=== PATIENT | female | born 1995 | race Caucasian/White ===

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

== ENCOUNTER 2017-04-05 13:58 | Inpatient (IN) | payer MEDICAID ==
[2017-04-05] MEDS ORDERED: ONDANSETRON HCL/PF 2 MG/ML VIAL IV PRN (14:13)
[2017-04-05] MEDS ORDERED: BUTORPHANOL TARTRATE 2 MG/ML VIAL IV PRN (14:13)
[2017-04-05] MEDS ORDERED: OXYTOCIN/DEXTROSE 5%-WATER 30 UNITS/500 ML BAG IV ONE ×2 (14:13)
[2017-04-05] MEDS ORDERED: INSULIN REGULAR HUMAN REC 100 UNITS in NORMAL SALINE 100 ML IV PRN (14:13)
[2017-04-05] MEDS ORDERED: LIDOCAINE HCL 50 ML VIAL PERI PRN (14:13)
[2017-04-05] MEDS ORDERED: PERMETHRIN 60 APPL TUBE TP SCH (14:15)
[2017-04-05] MEDS: MISOPROSTOL 100 MCG TABLET VG PRN (16:50)
[2017-04-05] MEDS: RINGER'S SOLUTION,LACTATED 1,000 ML IV ONE ×2 (18:04→20:59)
[2017-04-05 20:57] LABS: Urine Bilirubin Negative (NEGATIVE); Urine Blood 25 /ul (NEGATIVE); Urine Ketone Negative (NEGATIVE); Urine Nitrite Negative (NEGATIVE); Urine Protein Negative (NEGATIVE); Urine Urobilinogen Normal (NORMAL); Urine pH 6.5 pH (5.0-7.0)
[2017-04-05] MEDS ORDERED: RINGER'S SOLUTION,LACTATED 1,000 ML IV ONE (20:58)
[2017-04-05 21:07] LABS: Urine Appearance Turbid; Urine Bacteria TRACE; Urine Color Yellow; Urine RBC 0-5 /hpf (0-5)
[2017-04-06] MEDS: MISOPROSTOL 100 MCG TABLET VG PRN ×2 (01:19→10:30)
[2017-04-06] MEDS: RINGER'S SOLUTION,LACTATED 1,000 ML IV PRN ×5 (07:23→16:15)
[2017-04-06] MEDS ORDERED: ceFAZolin SODIUM/DEXTROSE,ISO 2 GM/50 ML BAG IV ONE (12:38)
[2017-04-06] MEDS ORDERED: OXYTOCIN 20 UNITS in RINGER'S SOLUTION,LACTATED 1,000 ML IV ONE (12:38)
--- NOTE | 2017-04-06 12:55 | PN ---
Progess Note - Interim Narrative: 04/06/17 8:45 Subjective-patient is resting comfortably, feels contractions occasionally, requesting section Objective- SVE- 08/30/-4, cephalic Bedside ultrasound-cephalic FHTs- 120s, moderate variability, positive accelerations, no decelerations [place]-every 1-2 minutes with irritability bigger contractions every 3 minutes Assessment and plan- Labor-induction due to gestational diabetes, status post Cytotec 2, Cytotec has been delayed due to tachysystole, patient is requesting to have section. Patient appears very tired and is crying and does not tolerate vaginal exams very well. I discussed options with the patient at time as she has not yet in labor. I discussed option to ambulate/nap/shower and reassess in 1 hour for Cytotec placement OR since she has an extended contraction stress test that is reassuring she could go home and come back in another couple of days. Pt continues to request for a CD and does not want to go home. Plan to have breakfast, rest and reassess for cytotec placement again after 1 hour. GBS status- neg Rash/Possible scabies-treatment for scabies started. Anesthesia discussed with pt and she is not a candidate for spinal/epidural/intrathecal anesthesia due to this rash. Pt undersands this and should she need a CD, she would be placed under general anesthesia. GDM-BS WNL, cont. to monitor
--- NOTE | 2017-04-06 12:57 | PN ---
Progess Note - Interim Narrative: 04/06/17 930 Nurse called to say that pt's contractions have spaced out and the plan was to place cytotec. Pt is crying due to pain and refused to have cytotec placed, and continues to request CD.
[2017-04-06] MEDS ORDERED: DEXTROSE 5% IV ONE ×2 (13:12)
[2017-04-06] MEDS ORDERED: GENTAMICIN SULFATE IV ONE ×2 (13:12)
[2017-04-06] MEDS ORDERED: WATER IV ONE ×2 (13:12)
--- NOTE | 2017-04-06 13:12 | PN ---
Progess Note - Interim Narrative: 04/06/17 12:57 Pt is resting comfortably, requesting CD, frustrated VSS SVE: 08/30/4, cephalic, pt crying during check FHTs: 120's, mod geovanni, no decels, + accels [place]: irregular, 1-3 min A/P: Pt is refusing to continue with induction of labor. At this time, we discussed that it is my recommendation to continue trial of labor as she is not in labor yet. I expressed my concerns that the pt does not tolerate exams and will likely not tolerate labor given her inability to have epidural due to the rash. Pt continues to desire CD. At this time, I do not believe that she's had an adequate time for cervical ripening. She would not tolerate a tripp bulb insertion, nor is she a good candidate for pitocin at this time. We discussed CD on maternal request and the risks and benefits reviewed with the pt. These risks were considered given her issues with anesthesia, narrow pubic arch, and failure to progress. We discussed her future reproductive plans (2 children), ability for TOLAC. We also discussed that a planned delivery is associated with a lower risk of injury than planned vaginal delivery, but longer hospital stay/recovery and increased risks of respiratory problems, abnormal placentation in future pregnancies, and uterine rupture in future pregnancies if a trial of labor is attempted. Planned delivery minimizes the risk of surgical complications associated with unplanned delivery, which may become necessary during attempted vaginal delivery. For women planning several pregnancies, we suggest avoiding delivery on maternal request. Placenta previa and accreta are significantly more common in pregnancies following one or more deliveries. Moreover, these complications may necessitate hysterectomy. If the patient undergoes a trial of labor in the future, she will be at increased risk of uterine rupture We understand her reasons for requesting a delivery, addressed her concerns about labor and vaginal and any misinformation she's had. Pt understands all these risks and wishes to proceed with CD. All questions and concerns were addressed. Pt consented and prepped for CD. 04/06/17 13:11
[2017-04-06] MEDS ORDERED: CLINDAMYCIN PHOSPHATE 900 MG in DEXTROSE 5 % IN WATER 100 ML IV ONE ×2 (14:00)
[2017-04-06] MEDS ORDERED: BISACODYL 10 MG SUPP.RECT RC PRN (15:26)
[2017-04-06] MEDS ORDERED: SENNOSIDES 8.6 MG TABLET PO PRN (15:26)
[2017-04-06] MEDS ORDERED: KETOROLAC TROMETHAMINE 30 MG/ML VIAL IV PRN (15:26)
[2017-04-06] MEDS ORDERED: SIMETHICONE 80 MG TAB.CHEW PO PRN (15:26)
[2017-04-06] MEDS ORDERED: ONDANSETRON HCL/PF 2 MG/ML VIAL IV PRN (15:26)
[2017-04-06] MEDS ORDERED: oxyCODONE HCL/ACETAMINOPHEN 1 TAB TABLET PO PRN (15:26)
--- NOTE | 2017-04-06 15:33 | OR ---
Operative Report - Dictated Report Narrative: Operative report: 04/06/2017 Preoperative diagnosis: 39.3 weeks, failed trial of induction, scabies, inability to receive local analgesia, maternal request for section Postoperative diagnosis: Same, hemorrhage Procedure: low-transverse section status: Routine Surgeon: Vera Redd D.O. Gas Pumper: Or staff Anesthesia: Gen. IV fluids: 900 Milliliters Urine output: 100 Milliliters EBL: 1000 Milliliters Findings: Normal-appearing uterus, tubes, and ovaries, male in cephalic presentation, 3258 g, delivered at 1435, Apgars of 6 at 1 minute, and 8 at 5 minutes and 9 at 10 minutes Drains: Elise catheter to gravity Pathology: None Complications: hemorrhage Condition: Stable The patient was taken to the operating room with IV fluids running and Elise catheter in place. She was placed in the dorsal supine position with a leftward tilt. She was prepped and draped in the normal sterile fashion. Gen. anesthesia was then induced. The patient was intubated. A Pfannenstiel skin incision was made with the scalpel approximately 2 cm above the pubic symphysis. The subcutaneous tissue was dissected down to the fascia. The fascia was incised in the midline and extended laterally. The superior aspect of the fascia was grasped with Darin clamps and the rectus muscles were dissected off the fascia using Coats scissors and blunt dissection. In a similar fashion, the inferior aspect of the fascia was grasped and the rectus muscles dissected off. The peritoneum was then entered and extended with good visualization of the bowel and bladder. The uterine incision was made in a low-transverse fashion using the scalpel. It was extended laterally in a blunt manner. The infant was found to be cephalic. The head did not deliver easily and the uterine incision was then extended with the bandage scissors. Again the infant was attempted to be delivered and did so with gentle fundal pressure. The infant was then delivered atraumatically. The cord was clamped and cut. The infant was handed off to the waiting counseling services manager. Cord blood and cord gases were then collected. The placenta was then delivered spontaneously. The uterus was cleared of all clots and debris. Brisk bleeding was noted and the uterus was noted to be boggy. The uterus again was cleared of all clots and debris and fundal massage was performed. Methergine was then given. Uterine incision was reapproximated using 0 Vicryl in a running locked fashion. The uterus continued to be slightly boggy but no obvious bleeding was noted. A second layer of 0 Vicryl was used to imbricate the uterine incision. Hemostasis was obtained. The peritoneum was then reapproximated using 3-0 Monocryl. The rectus muscles were inspected, cautery was used to obtain hemostasis. The fascia was then reapproximated with 0 Vicryl. The subcutaneous tissue was then irrigated. Bovie cautery was used to obtain hemostasis. The subcutaneous tissue was then reapproximated using 3-0 Monocryl. The skin was closed in a subcuticular fashion using 4-0 Monocryl. The incision was found to be hemostatic. Benzoin and Steri-Strips were then applied. Telfa and ABDs bandage was then placed. The patient tolerated the procedure well. Sponge, lap, needle, and instrument counts were correct throughout the entire procedure. The patient was taken to the recovery room in stable condition. History for MU Definition: * The number of deliveries resulting in a live the patient experienced prior to current hospitalization * The previous delivery of live twins or any live multiple gestation is considered one live event. *If primagravida or nulliparous is documented select zero for the number of previous live births. Live Events: 0
[2017-04-06] MEDS ORDERED: RINGER'S SOLUTION,LACTATED 1,000 ML IV ONE (15:50)
[2017-04-06] MEDS ORDERED: HYDROmorphone HCL 4 MG/ML DISP.SYRIN IV ONE ×2 (15:50→16:00)
[2017-04-06] MEDS ORDERED: NALOXONE HCL 0.4 MG/ML VIAL IV PRN (15:53)
[2017-04-06] MEDS ORDERED: PROMETHAZINE HCL 12.5 MG in DEXTROSE 5 % IN WATER 50 ML IV PRN ×2 (15:53)
[2017-04-06] MEDS ORDERED: diphenhydrAMINE HCL 50 MG/ML VIAL IV PRN (15:53)
[2017-04-06] MEDS ORDERED: HYDROmorphone HCL 1 MG/ML DISP.SYRIN IV ONE (15:53)
[2017-04-06] MEDS ORDERED: HYDROmorphone HCL 2 MG/ML VIAL IV PRN (15:53)
--- NOTE | 2017-04-06 16:05 | OR ---
Anesthesia Procedure Note - Anesthesia Procedure Note Date of Service: 04/06/17 Narrative: Vital Signs - Last Taken Temp 36.5 C 04/06/17 16:01 Pulse 99 04/06/17 16:01 Resp 18 04/06/17 16:01 BP 140/81 04/06/17 16:01 Pulse Ox 100 04/06/17 16:01 O2 Oxygen Delivery Method Room Air 04/06/17 16:04 ANESTHESIA PROCEDURE NOTE Date of Procedure: 04/06/2017. Time of procedure: 1540. Performed by: Jaime More CRNA Lens Inserter: None. Preprocedure diagnosis: Status post primary . Post procedure diagnosis: Same. Procedure: Bilateral ultrasound-guided transversus abdominis plane block for postop analgesia. Indications: The patient is a 22 -year-old female post section, which I was consulted for a bilateral ultrasound-guided tap blocks for postop analgesia. Findings: See below. Details of the procedure: ChloraPrep was used on the patient's abdomen and the procedure was performed under sterile technique. The right abdominal fascial layer between the internal oblique muscle and the transversus abdominis muscles was identified under ultrasound guidance. A 22-gauge 4 inch block needle was inserted under ultrasound guidance to the target fascial plane. 15 mL's of 0.5 % bupivacaine plus epinephrine 1 200,000 was injected after negative aspiration for blood. The needle was removed intact and the procedure was then repeated at the left side. No complications were noted. The images were retained in the Hospital medical database . EBL: Minimal. Fluids: N/A. Specimen: N/A. Post procedure condition: The patient tolerated the procedure well. No complications were noted. Thank you for this consultation. Jaime More CRNA
[2017-04-06] MEDS: IBUPROFEN 800 MG TABLET PO PRN (22:19)
[2017-04-06] MEDS: DOCUSATE SODIUM 100 MG CAPSULE PO SCH (22:25)
[2017-04-07] MEDS: oxyCODONE HCL/ACETAMINOPHEN 1 TAB TABLET PO PRN ×2 (01:27→19:00)
[2017-04-07] MEDS: DOCUSATE SODIUM 100 MG CAPSULE PO SCH ×2 (08:35→21:59)
--- NOTE | 2017-04-07 09:14 | PN ---
Mel Note - Interim Narrative: 04/07/17 09:12 Subjective: Patient is doing well, ambulating, voiding, tolerating by mouth. Minimal lochia. Pain controlled with medication. Objective: Vital signs stable General: no acute distress Abdomen: Soft, nondistended, diffusely tender, fundus firm Skin: Incision is clean, dry and intact Extremities: Minimal edema, nontender Rash: Improved Assessment and plan: Postoperative day 1 Feeding: bottle Pain: Controlled with by mouth medication Gestational diabetes: Continue to monitor blood sugars today Scabies: Much improved continue permethrin cream Routine postoperative care.
[2017-04-07] MEDS: IBUPROFEN 800 MG TABLET PO PRN ×2 (10:40→18:59)
[2017-04-07] MEDS: PERMETHRIN 60 APPL TUBE TP SCH (19:03)
[2017-04-08] MEDS: DOCUSATE SODIUM 100 MG CAPSULE PO SCH ×2 (10:23→20:10)
[2017-04-08] MEDS: IBUPROFEN 800 MG TABLET PO PRN ×2 (12:34→18:55)
--- NOTE | 2017-04-08 16:51 | PN ---
Subjective - Date and Time Seen Date: 04/08/17 Subjective Narrative: Post op day 2, s/p primary c/s. no complaints. pain controlled. passed gas. tolerated regular diet well. normal lochia. Objective - Vitals Vitals: Last Vital Signs Temp 37.0 C 04/08/17 15:37 Pulse 110 H 04/08/17 15:37 Resp 18 04/08/17 15:37 BP 121/58 04/08/17 15:37 Pulse Ox 98 04/08/17 15:37 - Exam Constitutional: Present: Alert, Oriented x3, Cooperative Respiratory: Present: no respiratory distress Cardiovascular/Chest: Present: normal peripheral pulses Abdomen: Present: soft, nondistended, other - Incision dry and clean with steri strips. fundus firm and non-tender Extremity: Present: normal range of motion, no pedal edema, no calf tenderness Skin Exam: Present: normal color, warm/dry, no cyanosis Eye contact: Present: cooperative, good eye contact, normal speech Cauti Physician Documentation - Urinary Catheter Management Urethral (Elise) Date of Insertion: 04/06/17 Time of Insertion: 13:00 Date of Removal: 04/07/17 Time of Removal: 01:10 Assessment/Plan Plan Narrative: A: POD#2, s/p primary c/s for failed trial of induction/inability to receive epidural. Plan: routine post op care. ambulation encouraged. pain meds prn. Torsten Morris MD
[2017-04-09] MEDS: IBUPROFEN 800 MG TABLET PO PRN (04:57)
[2017-04-09 12:14] VITALS: BP 107/62
[2017-04-09] MEDS: PERMETHRIN 60 APPL TUBE TP SCH (12:14)
[2017-04-09] MEDS: DOCUSATE SODIUM 100 MG CAPSULE PO SCH (12:15)
--- NOTE | 2017-04-09 15:05 | PN ---
Subjective - Date and Time Seen Date: 04/09/17 Subjective Narrative: Post op day 3, s/p primary c/s doing well. no complaints. pain controlled. . normal lochia. Objective - Vitals Vitals: Last Vital Signs Temp 36.8 C 04/09/17 10:00 Pulse 100 04/09/17 10:00 Resp 18 04/09/17 10:00 BP 107/62 04/09/17 10:00 Pulse Ox 99 04/09/17 10:00 - Exam Constitutional: Present: Alert, Oriented x3, Cooperative Respiratory: Present: no respiratory distress Cardiovascular/Chest: Present: normal peripheral pulses Abdomen: Present: soft, nontender, nondistended, other - fundus firm and below umbilicus. incision dry and clean with steri strips intact Extremity: Present: normal range of motion, no pedal edema, no calf tenderness Skin Exam: Present: normal color, warm/dry, no cyanosis Appearance: Present: appropriate appearance Eye contact: Present: cooperative, good eye contact, normal speech Cauti Physician Documentation - Urinary Catheter Management Urethral (Elise) Date of Insertion: 04/06/17 Time of Insertion: 13:00 Date of Removal: 04/07/17 Time of Removal: 01:10 Assessment/Plan Plan Narrative: A: POD#3, s/p primary c/s, stable and well. Plan: will discharge home today. Torsten Morris MD
== END 2017-04-09 17:08 | disposition home or self-care (01) | DRG 765 ==
LOC: OB 13:58
PROVIDERS: ADMIT Obstetrics & Gynecology Gynecologic Oncology; ATTEND Obstetrics & Gynecology Gynecologic Oncology
PROC: 0W3J0ZZ Control Bleeding in Pelvic Cavity, Open Approach (ICD-10-PCS; 2017-04-06)
PROC: 4A1HXCZ Monitoring of Products of Conception, Cardiac Rate, External Approach (ICD-10-PCS; 2017-04-06)
PROC: 10D00Z1 Extraction of Products of Conception, Low, Open Approach (ICD-10-PCS; principal; 2017-04-06 13:00)
DX: O32.4XX0 Maternal care for high head at term, not applicable or unspecified (principal); O72.1 Other immediate postpartum hemorrhage; O61.0 Failed medical induction of labor; O24.420 Gestational diabetes mellitus in childbirth, diet controlled; B86 Scabies; Z3A.39 39 weeks gestation of pregnancy; Z37.0 Single live birth

== ENCOUNTER 2017-06-01 17:11 | Observation (INO) | payer MEDICAID ==
[2017-06-01] MEDS ORDERED: ASPIRIN 81 MG TAB.CHEW PO ONE (17:17)
[2017-06-01] MEDS ORDERED: LEVALBUTEROL HCL 1.25 MG/3 ML AMPUL IH ONE ×4 (17:19→21:03)
[2017-06-01] MEDS ORDERED: NORMAL SALINE 1,000 ML IV ONE ×2 (17:21→18:57)
[2017-06-01] MEDS ORDERED: METHYLPREDNISOLONE SOD SUCC/PF 40 MG/ML VIAL IV ONE (17:21)
--- NOTE | 2017-06-01 17:21 | ERNOTE ---
Chest Pain/Cardiac HPI Date of Service: 06/01/17 Chief Complaint: Chest Pain Time Seen by Provider: 06/01/17 17:15 Immunizations: IMMUNIZATION HX Immunizations Up to Date No History of Influenza Vaccine No Hx Pneumococcal Vaccination No Allergies/Adverse Reactions: Allergies Penicillins Adverse Reaction (Mild, Verified 06/01/17 17:21) RASH Home Medications: HOME MEDICATIONS NK [No Home Medication] 06/01/17 [Last Taken Unknown] Narrative: Patient states that last night around 10:00pm and she started developing substernal chest pain. The pain has not subsided. Patient appears short of breath. Patient did have a April 06 of a healthy child. patient lips are dry and mucous membranes are also dry. Patient appears anxious and has been crying intermittently regarding being having a . Date (Duration): 06/01/17 Timing: constant, getting worse Severity/Quality: moderate, burning Location: substernal Chest Pain Radiation: no radiation Activities at Onset: none Modifying Factors - Improves: Present: nothing Modifying Factors - Worsens: Present: nothing Nitro Today/Relief: no nitro taken today Aspirin Treatment Today: 325 mg x 1, provided by ED Associated Symptoms: Present: cough, shortness of breath Prior Chest Pain/Cardiac Workup: Reports: prior chest pain - and was dx with bronchitis in 2014 Review of Systems - Narrative Narrative: Patient states she has substernal chest pain he feels short of breath. Patient states she has a history of bronchitis 2 years ago. - Review of Systems Constitutional: Present: See HPI, recent illness, fatigue. Absent: fever, chills, weight loss EYE: Present: no symptoms reported ENT: Present: See HPI, nose congestion, sore throat. Absent: nasal drainage, throat swelling Respiratory: Present: See HPI, shortness of breath, cough - congested with yellow sputum production, orthopnea, wheezing Cardiology: Present: See HPI, chest pain. Absent: palpitations, syncope, edema , claudication Gastrointestinal/Abdominal: Present: no symptoms reported. Absent: nausea, vomiting, diarrhea, constipation, abdominal pain, eating less, drinking less Genitourinary: Present: no symptoms reported, decreased urinary output Musculoskeletal: Present: no symptoms reported Skin: Present: no symptoms reported Neurological: Present: no symptoms reported Endocrine: Present: no symptoms reported Hematologic/Lymphatic: Present: no symptoms reported Psych: Present: no symptoms reported All Other Systems: All systems neg except as marked - Patient's Past Medical History Patient History - Medical: No pertinent hx, Other Patient History - Cardiac/Respiratory: No pertinent hx Patient History - Cancer: No Hx of Cancer Patient History - Surgical Procedures: Other Patient History - Other: None - Social History Abuse History: No History of abuse Psych History: No pertinent hx - Immunizations Immunizations Up to Date: No Hx Pneumococcal Vaccination: No History of Influenza Vaccine: No Physical Exam - Physical Exam Narrative: Auscultation of patient's lungs revealed inspiratory and expiratory wheezing wheezing, decreased breath sounds, sounded very tight. Patient is tachypnic and appears anxious. Patient is also tachycardic on the monitor General Appearance: Present: wd/wn, alert, mild distress, anxious Head Exam: Present: normal inspection, no evidence of injury Eye Exam: Normal inspection: bilateral, PERRL: bilateral, EOMI: bilateral Ears, Nose, Throat: Present: normal ENT inspection, nasal congestion, normal pharynx. Absent: sinus pain/drainage, pharyngeal swelling Neck: Present: normal inspection, nontender, supple, full range of motion Respiratory: Present: chest nontender, respiratory distress, accessory muscle use, decreased breath sounds, rales, rhonchi, wheezing Cardiovascular/Chest: Present: no murmur, normal peripheral pulses, tachycardia Peripheral Pulses: N=norm/S=strong/W=weak/B=bound/A=absent: Radial (R): Normal, Radial (L): Normal, Dorsalis-pedis (R): Normal, Dorsalis-pedis (L): Normal Gastrointestinal/Abdominal: Present: normal bowel sounds, nontender, nondistended, soft, no organomegaly. Absent: tenderness, distended Pelvic Exam: Absent: active bleeding Back Exam: Present: normal inspection, normal range of motion, no CVA tenderness , no vertebral tenderness. Absent: muscle spasm Extremity Exam: Present: normal inspection, non-tender, normal range of motion, no edema. Absent: decreased range of motion, pedal edema, calf tenderness, joint swelling Neurological Exam: Present: alert, oriented, normal mood/affect, no motor/ sensory deficits, drum operator II-XII nml as tested, normal cerebellar test. Absent: facial droop Skin Exam: Present: normal color, warm/dry Lymphatic Exam: Present: no adenopathy ED Progress - Date and Time Seen: Date and Time: 06/01/17 18:01 patient lung sound have improved after breathing treatment. 06/01/17 18:20 patient is tolerating fluids well and GI cocktail. 06/01/17 19:01 patient is feeling better after her gi cocktail. chest pain is 0. 06/01/17 19:01 - Results and Orders Patient's Lab Results:: I have reviewed the patient's lab results. - Vital Signs Patient's Vital Signs:: I have reviewed the patient's vital signs. - EKG EKG: other - sinus tach EKG read: Reviewed by me EKG Comments: reviewed by ED attending - X-Ray X-Ray #1 X-Ray: chest Interpretation: Reviewed by me X-ray Comments: X-RAY REPORT [id number] RAD/Chest Single View * Exam Date: 06/01/2017 17:18 Ordering Physician: Antony Roth Chest Single View * INDICATION: Chest Pain. Additional technologist comments: Congestion COMPARISON STUDY: None. TECHNIQUE: Single PA view of the chest was obtained. FINDINGS: Lungs: Normal lung volumes. Subtle left retrocardiac heterogeneous opacity. Normal pulmonary vasculature. Pleura: No pleural effusion or pneumothorax. Heart and Mediastinum: The cardiomediastinal silhouette is within normal limits. Skeletal Structures and Soft Tissues: No acute osseous abnormality. IMPRESSION: Subtle left retro cardiac heterogeneous opacity which is better seen on the concurrent CTA of the chest. Findings are suggestive of infection. Electronically signed by Marie Burciaga D.O.. Marie Burciaga DO - CT/Ultrasound CT/Ultrasound Narrative: X-RAY REPORT [id number] CT/CTA Chest Exam Date: 06/01/2017 20:18 Ordering Physician: Antony Roth CTA Chest INDICATION: SOB, tachycardia. Chest pain. Additional technologist comments: Chest pain, cough, congestion started yesterday evening. COMPARISON STUDY: Chest radiograph earlier today. TECHNIQUE: Following the uneventful administration of a bolus of intravenous contrast Isovue-[address] images were obtained through the chest using the pulmonary embolus protocol. Coronal MIP images were also obtained. FINDINGS: Respiratory motion. Expiratory imaging. Pulmonary Arteries: No evidence of pulmonary thromboembolic disease. No pulmonary hypertension or right ventricular strain. Heart and Mediastinum: The visualized portions of the thyroid gland are normal in size and attenuation. No axillary or supraclavicular lymphadenopathy. No mediastinal, hilar or retrocrural lymphadenopathy. The heart and pericardium are within normal limits. The great vessels of the thorax are normal. Lungs and Airways: There there are patchy left perihilar groundglass opacities. There are additional scattered heterogeneous patchy opacities within the right upper lobe and right lung base. No pulmonary mass. No endoluminal lesion. Pleura: The pleural spaces are normal. Abdomen: The visualized abdominal organs demonstrate no abnormality. Bones and Soft Tissues: Normal osseous structures. The soft tissues of the chest wall are within normal limits. IMPRESSION: 1. No evidence of pulmonary thromboembolic disease. 2. Scattered heterogeneous opacities within the left perihilar region as well as within the right upper lobe and right lung base. Findings are suggestive of infection. Electronically signed by Marie Burciaga D.O.. - Progress/Reassessment Progress:: Improved Plan - Plan Plan: patient to be admitted for PNA and tachycardia. Departure Clinical Impression: Dehydration, Bronchitis Pneumonia Qualifiers: Pneumonia type: due to unspecified organism Laterality: left Lung location: upper lobe of lung Qualified Code(s): J18.1 - Lobar pneumonia, unspecified organism - Departure Disposition: [facility] Condition: Stable
[2017-06-01 17:33] LABS: Hematocrit 40.4 % (37.0-47.0); Hemoglobin 12.5 gm/dL (12.5-16.0); Mean Cell Volume 85.1 fl (78-100); Mean Corpuscular Hemoglobin 26.3 pg (27-31); Mean Corpuscular Hgb Conc 30.9 g/dl (32-36); Mean Platelet Volume 9.4 fl (6.0-9.5); Neutrophil # 11.3 K/mm3 (1.3-6.0); Neutrophil % 78.3 % (42-75.0); Platelet Count 398 K/mm3 (150-450); Red Blood Count 4.75 M/mm3 (4.2-5.4); Red Cell Distribution Width 15.3 % (11.5-14.0); White Blood Count 14.4 K/mm3 (4.0-10.5)
[2017-06-01 17:45] LABS: Prothrombin Time (Patient) 10.5 Seconds (9.0-11.0)
[2017-06-01] MEDS ORDERED: METHYLPREDNISOLONE SOD SUCC/PF 40 MG/ML VIAL ONE (17:45)
[2017-06-01] MEDS ORDERED: ASPIRIN 81 MG TAB.CHEW ONE (17:45)
[2017-06-01 17:47] LABS: INR 1.05 INR (0.90-1.10); Partial Thrombolplastin Time 29.4 Seconds (24-32)
[2017-06-01] MEDS ORDERED: MAG HYDROX/ALUMINUM HYD/SIMETH 30 ML UDC PO ONE (17:55)
[2017-06-01] MEDS ORDERED: SUCRALFATE 1 G/10 ML UDC PO ONE (17:55)
[2017-06-01] MEDS ORDERED: LIDOCAINE HCL 20 ML UDC PO ONE (17:55)
[2017-06-01 17:59] LABS: ALT 27 U/L (19-67); AST 16 U/L (0-48); Albumin * 4.2 gm/dl (3.4-5.0); Alkaline Phosphatase * 141 U/L (50-170); BUN/Creatinine Ratio 7.4 (9.0-21.6); Bilirubin, Total 0.5 mg/dL (0.0-1.1); Blood Urea Nitrogen 7 mg/dL (3-23); Ca. Corrected For Albumin 8.7 mg/dL (8.4-10.2); Calcium * 9.2 mg/dL (7.9-10.9); Chloride 107 mmol/L (97-106); Glucose * 90 mg/dL (70-110); Sodium 143 mmol/L (132-142); TSH * 0.925 uIU/mL (0.516-4.13); Total Protein 8.3 gm/dL (6.2-8.2); Troponin I Less than 0.017 ng/ml (0.00-0.10)
[2017-06-01] MEDS ORDERED: AZITHROMYCIN 250 MG TABLET PO ONE (18:57)
[2017-06-01] MEDS ORDERED: AZITHROMYCIN 250 MG TABLET ONE (19:00)
[2017-06-01 19:55] LABS: Urine Bilirubin Negative (NEGATIVE); Urine Blood 250 /ul (NEGATIVE); Urine Ketone Negative (NEGATIVE); Urine Nitrite Negative (NEGATIVE); Urine Protein 30 mg/dL (NEGATIVE); Urine Specific Gravity 1.025 SP.GR. (1.005-1.010); Urine Urobilinogen Normal (NORMAL)
[2017-06-01 20:06] LABS: Urine Appearance Cloudy; Urine Color Dark Yellow; Urine RBC 0-5 /hpf (0-5)
[2017-06-01 20:07] LABS: Urine Bacteria 3+; Urine Yeast Few - 1+
[2017-06-01 20:10] LABS: Cocaine Ur Negative (NEGATIVE); Urine Barbiturate Negative (NEGATIVE); Urine Benzodiazepines Negative (NEGATIVE); Urine Opiates Negative (NEGATIVE); Urine PCP Negative (NEGATIVE); Urine THC Negative (NEGATIVE)
[2017-06-01] MEDS: NORMAL SALINE 1,000 ML IV PRN (20:57)
--- NOTE | 2017-06-01 21:14 | HP ---
Chief Complaint - Chief Complaint Date of Service: 06/01/17 Time of Service: 21:12 Chief Complaint: "SOB". Source of HPI- Pt reliable, ERP provider report. History of Present Illness: Ms. Valenzuela is a 22-yr-old [facility] pt who has no pertinent medical history. She presented to the ED with visible SOB. She states that the SOB begun last night and was accompanied by productive coughing of thick yellow phlegm and substernal chest pain. She denies fevers, chills, n/v & diarrhea. She also denies having any URI symptoms involving nasal congestion, drainage and headaches. She had a C- section delivery on 04/06/17 with a healthy living infant. At the ED, she remained dyspneic and tachycardic despite treatments with nebulizers and IV Solumedrol. Her WBC was elevated at 14,400. UA showed presence of a UTI. The CXR indicated subtle opacities on the LLL,which was better visualized with a CT Chest Angio and was suggestive of Pneumonia but, there was no evidence of Pulmonary Embolism. She will be admitted under observation for Pneumonia & Dehydration. - Patient's Past Medical History Patient History - Medical: No pertinent hx, Other Patient History - Cardiac/Respiratory: No pertinent hx Patient History - Cancer: No Hx of Cancer Patient History - Surgical Procedures: Other Patient History - Other: None LMP (females 10-50): c cection on 04-06-17 - Family History Mother Family History - Medical: No pertinent hx Family History - Cardiac/Respiratory: No pertinent hx Family History - Cancer: No pertinent family hx Father Family History - Medical: Diabetes Type 2 Grandfather-Paternal Family History - Medical: Family History - Cancer: Lung - Social History Living Situations: home Abuse History: No History of abuse Psych History: No pertinent hx Smoking Status: Current every day smoker Alcohol Use: none Drug Use: none - Immunizations Immunizations Up to Date: No Hx Pneumococcal Vaccination: No History of Influenza Vaccine: No Review Of Systems (GEN) - Review of Systems Generalized/Overall Review: Present: Malaise, Fatigue. Absent: Weakness, Chills , Fever, Diaphoresis, Weight loss EENTM: Absent: Ear Pain, Ear Discharge, Nose Congestion Respiratory: Present: Cough, Shortness of Breath. Absent: Orthopnea, Stridor Cardiac: Absent: Chest Pain, Edema, Palpitations Abdominal: Absent: Nausea, Vomiting, Hematemesis, Abdominal Pain, Constipation, Diarrhea Genitourinary: Absent: Burning, Itching, Urgency, Frequency Musculoskeletal: Absent: Joint Pain, Back Pain Neurological: Absent: Headache, Anxiety, Depressed Skin: Absent: Dryness, Lesions, Lumps, Rash Endocrine: Present: Intolerance to Cold. Absent: Flushing Misc: All systems neg except as marked Immunizations: IMMUNIZATION HX Immunizations Up to Date No History of Influenza Vaccine No Hx Pneumococcal Vaccination No Allergies/Adverse Reactions: Allergies Allergy/AdvReac Type Severity Reaction Status Date / Time Penicillins AdvReac Mild RASH Verified 06/01/17 17:21 Home Medications: HOME MEDICATIONS NK [No Home Medication] 06/01/17 [Last Taken Unknown] Exam - Exam Vital Signs: Vital Signs - Last Taken Temp 36.6 C 06/01/17 17:14 Pulse 119 H 06/01/17 21:04 Resp 20 06/01/17 21:04 BP 113/56 06/01/17 20:50 Pulse Ox 98 06/01/17 21:04 Constitutional: Present: Alert, Oriented x3, Cooperative, No distress ENT Exam: Present: normal ENT inspection, dry mucous membranes. Absent: nasal congestion, nasal drainage Eye Exam: bilateral eye: normal inspection, PERRL Neck: Present: full range of motion, supple, normal inspection Back Exam: Present: normal inspection Breasts: Present: Exam deferred Respiratory: Present: decreased breath sounds, No rales, No wheezing Cardiovascular/Chest: Present: normal peripheral pulses, no chest tenderness, no edema, no murmur, tachycardia Abdomen: Present: Normal bowel sounds, soft, nontender /Rectal: Present: Exam deferred Extremity: Present: non-tender, normal inspection, no calf tenderness Skin Exam: Present: warm/dry, no cyanosis Lymphatic: Present: no adenopathy Neurologic: Present: alert, oriented x 3, depressed affect Appearance: Present: appropriate appearance, appropriate insight, other - Withdrawn Eye contact: Present: good eye contact Thoughts: Present: no apparent hallucination Diagnostic Studies: Laboratory Results WBC 14.4 K/mm3 (4.0-10.5) H 06/01/17 17:30 RBC 4.75 M/mm3 (4.2-5.4) 06/01/17 17:30 Hgb 12.5 gm/dL (12.5-16.0) 06/01/17 17:30 Hct 40.4 % (37.0-47.0) 06/01/17 17:30 MCV 85.1 fl (78-100) 06/01/17 17:30 MCH 26.3 pg (27-31) L 06/01/17 17:30 MCHC 30.9 g/dl (32-36) L 06/01/17: RDW 15.3 % (11.5-14.0) H 06/01/17 17:30 Plt Count 398 K/mm3 (150-450) 06/01/17 17: MPV 9.4 fl (6.0-9.5) 06/01/17 17: Immature Gran % (Auto) 0.30 % (0.001-0.429) 06/01/17: Immature Gran # (Auto) 0.05 K/mm3 (0.000-0.0310) H 06/01/17 17:30 Neutrophils % 78.3 % (42-75.0) H 06/01/17 17:30 Lymphocytes % 10.2 % (20-51) L 06/01/17 17:30 Monocytes % 5.8 % (0.0-9) 06/01/17 17: Eosinophils % 4.7 % (0.0-3.0) H 06/01/17 17:30 Basophils % 0.7 % (0.0-1.0) 06/01/17 17: Nucleated RBC % 0.0 k/mm3 (0-1) 06/01/17 17: Neutrophils # 11.3 K/mm3 (1.3-6.0) H 06/01/17 17:30 Lymphocytes # 1.5 k/mm3 (1.5-3.5) 06/01/17: Monocytes # 0.8 k/mm3 (0.0-1.0) 06/01/17: Eosinophils # 0.7 k/mm3 (0.0-0.7) 06/01/17: Absolute Basophils 0.1 k/mm3 (0.0-0.1) 06/01/17 17: PT 10.5 Seconds (9.0-11.0) 06/01/17 17:30 INR (Anticoag Therapy) 1.05 INR (0.90-1.10) 06/01/17 17:30 PTT ([place]) 29.4 Seconds (24-32) 06/01/17 17:30 D-Dimer 0.32 mg/L (0.19-0.49) 06/01/17 17:30 Sodium 143 mmol/L (132-142) H 06/01/17 17:30 Plasma Sodium 143 mmol/L (130-142) H 06/01/17 17:30 Potassium 4.0 mmol/L (3.4-4.6) 06/01/17 17:30 Chloride 107 mmol/L (97-106) H 06/01/17:30 Carbon Dioxide 25.0 mmol/L (24-32.6) 06/01/17 17:30 Anion Gap 15.0 mmol/L (6.8-13.8) H 06/01/17 17:30 BUN 7 mg/dL (3-23) 06/01/17 17:30 Creatinine 0.95 mg/dL (0.4-1.4) 06/01/17 17:30 Est GFR (Non-Af Amer) 80 mL/min (60-130) 06/01/17 17:30 BUN/Creatinine Ratio 7.4 (9.0-21.6) L 06/01/17 17:30 Random Glucose 90 mg/dL (70-110) 06/01/17 17:30 Calcium 9.2 mg/dL (7.9-10.9) 06/01/17 17:30 Calcium Adj for Albumin 8.7 mg/dL (8.4-10.2) 06/01/17 17:30 Total Bilirubin 0.5 mg/dL (0.0-1.1) 06/01/17 17:30 AST 16 U/L (0-48) 06/01/17 17:30 ALT 27 U/L (19-67) 06/01/17 17:30 Alkaline Phosphatase 141 U/L (50-170) 06/01/17 17:30 Troponin I Less than 0.017 ng/ml (0.00-0.10) 06/01/17 17:30 Total Protein 8.3 gm/dL (6.2-8.2) H 06/01/17 17:30 Albumin 4.2 gm/dl (3.4-5.0) 06/01/17 17:30 TSH 0.925 uIU/mL (0.516-4.13) 06/01/17 17:30 Urine Color Dark yellow 06/01/17 19:10 Urine Appearance Cloudy 06/01/17 19:10 Urine pH 6.0 pH (5.0-7.0) 06/01/17 19:10 Ur Specific [place] 1.025 SP.GR. (1.005-1.010) 06/01/17 19:10 Urine Protein 30 mg/dL (NEGATIVE) H 06/01/17 19:10 Urine Glucose (UA) Negative mg/dL (NEGATIVE) 06/01/17 19:10 Urine Ketones Negative mg/dL (NEGATIVE) 06/01/17 19:10 Urine Blood 250 /ul (NEGATIVE) H 06/01/17 19:10 Urine Nitrate Negative (NEGATIVE) 06/01/17 19:10 Urine Bilirubin Negative mg/dl (NEGATIVE) 06/01/17 19:10 Prot Sulfosalicylic Acd Negative mg/dL (0) 06/01/17 19:10 Urine Urobilinogen Normal EU/dl (NORMAL) 06/01/17 19:10 Ur Leukocyte Esterase 75 /ul (NEGATIVE) H 06/01/17 19:10 Urine RBC 0-5 /hpf (0-5) 06/01/17 19:10 Urine WBC 10-25 /hpf (0-5) H 06/01/17 19:10 Ur Epithelial Cells 10-25 /hpf (0-5) H 06/01/17 19:10 Urine Bacteria 3+ (NONE) H 06/01/17 19:10 Urine Yeast Few - 1+ (NONE) H 06/01/17 19:10 Urine Culture Comments Culture to follow 06/01/17 19:10 Urine HCG, Qual Negative (NEGATIVE) 06/01/17 19:10 Urine Opiates Screen Negative (NEGATIVE) 06/01/17 19:10 Barbiturate Screen Negative (NEGATIVE) 06/01/17 19:10 Ur Phencyclidine Scrn Negative (NEGATIVE) 06/01/17 19:10 Urine Amphetamine Negative (NEGATIVE) 06/01/17 19:10 U Benzodiazepines Scrn Negative (NEGATIVE) 06/01/17 19:10 Urine Cocaine Screen Negative (NEGATIVE) 06/01/17 19:10 Urine Marijuana (THC) Negative (NEGATIVE) 06/01/17 19:10 Assessment/Plan - Assessment/Plan (1) Pneumonia Assessment: Pt presented with SOB, substernal chest pain & productive coughing. The findings on CXR and CT Chest were concerning for Pneumonia on LLL. She received Azithromycin 500 mg PO and Rocephin 1 gm at the ED and will continue q 24 h. Will push cornet q 2 h and give Xopenex nebs treatments. Since pt is otherwise healthy without risk factors for resistant organisms, she can be discharged on Doxycyline 100mg b.i.d for 5-7 days. Monitor v.s and check CBC in am. Problem: Acute Qualifiers: Pneumonia type: due to unspecified organism Laterality: left Lung location: upper lobe of lung Qualified Code(s): J18.1 - Lobar pneumonia, unspecified organism (2) Asymptomatic bacteriuria Assessment: UA showed 3 + bacteria and was positive for Leukocyte esterace. However, she had no symptoms to suggest acute cystitis: dysuria, frequent urination & urgency. She has proteins in urine, however, false positive can be seen in urine containing numerous leukocytes or epithelial cells. Will repeat the urine sample by catherterization. Problem: Acute (3) Dehydration Assessment: Noted to be tachycardic with HR in 120s-130s and has dry mucous membranes. Provide aggressive IVF hydration. Problem: Acute
[2017-06-01] MEDS ORDERED: LEVALBUTEROL HCL 0.63 MG/3 ML AMPUL IH ONE (23:06)
[2017-06-02] MEDS: LEVALBUTEROL HCL 0.63 MG/3 ML AMPUL IH SCH ×2 (00:10→06:04)
[2017-06-02 00:17] LABS: Urine Bilirubin Negative (NEGATIVE); Urine Blood 250 /ul (NEGATIVE); Urine Ketone 5 mg/dL (NEGATIVE); Urine Nitrite Negative (NEGATIVE); Urine Protein Negative (NEGATIVE); Urine Urobilinogen Normal (NORMAL)
[2017-06-02 00:20] LABS: Urine Appearance Clear; Urine Bacteria None Seen; Urine Color Pale Yellow; Urine RBC 0-5 /hpf (0-5); Urine WBC 0-5 /hpf (0-5)
[2017-06-02] MEDS: NORMAL SALINE 1,000 ML IV PRN ×2 (02:32→07:35)
--- NOTE | 2017-06-02 05:46 | DS ---
(1) Pneumonia Problem: Acute Qualifiers: Pneumonia type: due to unspecified organism Laterality: left Lung location: upper lobe of lung Qualified Code(s): J18.1 - Lobar pneumonia, unspecified organism (2) Asymptomatic bacteriuria Problem: Ruled-out (3) Dehydration Problem: Acute Description of Stay: Admission HPI. Ms. Valenzuela is a 22-yr-old [facility] pt who has no pertinent medical history. She presented to the ED with visible SOB. She states that the SOB begun last night and was accompanied by productive coughing of thick yellow phlegm and substernal chest pain. She denies fevers, chills, n/v & diarrhea. She also denies having any URI symptoms involving nasal congestion, drainage and headaches. She had a C- section delivery on 04/06/17 with a healthy living infant. At the ED, she remained dyspneic and tachycardic despite treatments with nebulizers and IV Solumedrol. Her WBC was elevated at 14,400. UA showed presence of a UTI. The CXR indicated subtle opacities on the LLL,which was better visualized with a CT Chest Angio and was suggestive of Pneumonia but, there was no evidence of Pulmonary Embolism. She will be admitted under observation for Pneumonia & Dehydration. Hospital Problem/s 1.) Pneumonia. Ms Valenzuela presented with SOB, with accompanying symptoms of cough and substernal chest pain.The CXR showed LLL Pneumonia. She did not require any O2 supplementation during the overnight stay. She received treatment with Azithromycin and Rocephin at the ED and will receive those doses again prior to discharge. She will be discharge home on Levaquin 500 mg daily x 10 days. She lacks PCP and she was advised to follow-up with Dr. Cortez next week. 2.) Dehydration. She was noted to be in Sinus Tachycardia with rate on 120-130s at the ED and had dry mucous membrane. She received aggressive IVF hydration and on the morning of discharge her HR was in the 90s-low 100s. 3.) UTI- this was ruled out after repeat clean catch. Procedures Performed: none Discharge Disposition: Home self care Disposition: Home self-care Condition: Good Discharge Activity: Activity as tolerated Discharge Diet: General/regular food Problem Oriented Discharge Instructions to Patient/Family: Rehydration, Adult, Community-Acquired Pneumonia, Adult, [id number] Additional Patient Instructions (free text): Please make arrangements to follow-up with Dr. Cortez next week. Prescriptions (Any new or edited meds): Levofloxacin [Levaquin] 500 mg PO DAILY #10 tab Complete Home Medications List: Complete Home Medication List: Levofloxacin [Levaquin] 500 mg PO DAILY #10 tab 06/02/17
[2017-06-02 06:02] LABS: Hemoglobin 10.2 gm/dL (12.5-16.0); Mean Cell Volume 85.5 fl (78-100); Mean Corpuscular Hemoglobin 26.4 pg (27-31); Mean Corpuscular Hgb Conc 30.9 g/dl (32-36); Mean Platelet Volume 9.7 fl (6.0-9.5); Neutrophil # 7.5 K/mm3 (1.3-6.0); Neutrophil % 88.3 % (42-75.0); Platelet Count 329 K/mm3 (150-450); Red Blood Count 3.86 M/mm3 (4.2-5.4); Red Cell Distribution Width 15.4 % (11.5-14.0); White Blood Count 8.5 K/mm3 (4.0-10.5)
[2017-06-02 06:31] VITALS: BP 106/59
[2017-06-02 07:47] LABS: BUN/Creatinine Ratio 13.5 (9.0-21.6); Calcium * 8.8 mg/dL (7.9-10.9); Carbon Dioxide 19.3 mmol/L (24-32.6); Estimated Creat Clear 157.6; Potassium 4.3 mmol/L (3.4-4.6)
[2017-06-02] MEDS ORDERED: NORMAL SALINE 500 ML IV PRN (07:56)
[2017-06-02] MEDS ORDERED: LEVOFLOXACIN 500 MG TABLET PO ONE (08:00)
[2017-06-02] MEDS ORDERED: AZITHROMYCIN 500 MG in DEXTROSE 5 % IN WATER 250 ML IV SCH ×2 (09:00)
== END 2017-06-02 09:00 | disposition home or self-care (01) ==
LOC: ER 17:11 → MS 21:01
PROVIDERS: ADMIT Nurse Practitioner; ATTEND Internal Medicine
PROC: 0T9B7ZZ Drainage of Bladder, Via Natural or Artificial Opening (ICD-10-PCS; principal; 2017-06-01)
DX: J18.8 Other pneumonia, unspecified organism (principal); F17.210 Nicotine dependence, cigarettes, uncomplicated; E86.0 Dehydration; R82.71 Bacteriuria; R00.0 Tachycardia, unspecified
CPT/HCPCS: 36415; 51701; 71010; 71275; 80048; 80053; 80307; 81001; 84443; 84484; 84703; 85025; 85379; 85610; 85730; 87040; 87086; 87400; 93005; 94640; 96361; 96365; 96375; 99285; G0378